=== PATIENT | male | born 1985 | race Caucasian/White ===

== ENCOUNTER 2016-12-04 19:42 | Emergency (ER) | payer OTHER ==
[~2016-12-04] VITALS: Ht 180.3 cm; Wt 73.9 kg
[2016-12-04] MEDS ORDERED: PERCOCET 5/31 TABLET PO (22:25)
[2016-12-04 22:52] VITALS: BP 147/70
== END 2016-12-04 22:52 | disposition home or self-care (01) ==
LOC: EME 19:42
PROC: 2W3RX1Z Immobilization of Left Lower Leg using Splint (ICD-10-PCS; principal; 2016-12-04)
DX: S82.892A Other fracture of left lower leg, initial encounter for closed fracture (principal); W10.9XXA Fall (on) (from) unspecified stairs and steps, initial encounter
CPT/HCPCS: 73590; 73610; 99281; 99284

== ENCOUNTER 2017-01-03 13:04 | Emergency (ER) | payer OTHER ==
[~2017-01-03] VITALS: Ht 180.3 cm; Wt 72.0 kg
[~2017-01-03 13:04] MED LIST: PERCOCET 5/31 TABLET PO
[2017-01-03] MEDS ORDERED: TRAMADOL HCL50 MG PO (13:58)
[2017-01-03 14:19] VITALS: BP 128/81
== END 2017-01-03 14:20 | disposition home or self-care (01) ==
LOC: EME 13:04 → RME 13:04
DX: M79.605 Pain in left leg (principal); S82.92XD Unspecified fracture of left lower leg, subsequent encounter for closed fracture with routine healing; Z76.0 Encounter for issue of repeat prescription
CPT/HCPCS: 99281; 99283

== ENCOUNTER 2017-03-16 15:49 | Emergency (ER) | payer OTHER ==
[~2017-03-16] VITALS: Ht 180.3 cm; Wt 73.5 kg
[~2017-03-16 15:49] MED LIST changes: +TRAMADOL HCL50 MG PO
[2017-03-16 18:00] VITALS: BP 110/70
== END 2017-03-16 18:01 | disposition home or self-care (01) ==
LOC: EXP 15:49 → EME 15:49 → EXP 18:01
DX: R20.2 Paresthesia of skin (principal); M79.605 Pain in left leg; F17.200 Nicotine dependence, unspecified, uncomplicated; Z87.81 Personal history of (healed) traumatic fracture
CPT/HCPCS: 99281; 99283